=== PATIENT | male | born 1940 | race Caucasian/White ===

== ENCOUNTER → 2016-07-20 | Outpatient (CLI) | payer MEDICARE, BC ==
[~2016-07-20] MED LIST: ALEVE220 M1 PO; ASA325 MG PO; BENADRYL-DPS25 MG PO; COLACE-DPS100 MG PO; COMPAZINE DPS5 MG PO; DULCOLAX-DPS10 MG PR; EFFEXOR XR75 MG PO; FENOFIBRATE48 MG PO; FLEET ENEMA133 ML PR; FLOMAX DPS0.4 MG PO; GLUCOPHAGE-DPS500 MG PO; LOVENOX DP40 MG/0.4 SQ; MAALOX DPS30 ML PO; MILK OF MAGNESI10 ML PO; NORCO 5-325 TA1 EACH PO; NOVOLOG100 UNIT/2 SQ; OXY IR DPS5 MG PO; POLYETHYLENE GL17 GM PO; PROBIOTIC1 EAC1 PO; PROTONIX40 MG PO; RIFADIN300 MG PO; SENOKOT S1 TAB PO; SYNTHROID DP0.025 MG PO; TYLENOL DPS325 MG PO; ULTRAM DPS50 MG PO; VANCOMYCIN1 DOSE IV; VENLAFAXINE H37.5 M1 PO; VITAMIN D2400 UNIT PO; VITAMIN D50000 UNI1 PO; ZEBETA5 MG PO; ZESTORETIC 20/21 TAB PO
== END | disposition home or self-care (01) ==
LOC: PTH.S 09:25
DX: Z01.818 Encounter for other preprocedural examination (principal)

== ENCOUNTER 2016-08-03 06:12 | Inpatient (IN) | payer MEDICARE, BC ==
[~2016-08-03] VITALS: Ht 172.7 cm; Wt 105.7 kg
--- NOTE | ~2016-08-03 | OR ---
ADMIT: 08/03/2016 RM/LOC: 510 [facility] MR#: [id number] [address] [address] JUDY GORDON L [address] [place] [address] Operative/Delivery Room Report SEX: M AGE: 76 : 1940 SURGERY DATE: 08/03/2016 SURGEON: Leoncio Rincon MD AUTO REBUILDER: Shimon Campbell PA-C PREOPERATIVE DIAGNOSIS: Right hip degenerative joint disease. POSTOPERATIVE DIAGNOSIS: Right hip degenerative joint disease. PROCEDURES: 1. Right anterior total hip arthroplasty. 2. Intra-articular Exparel block. ANESTHESIA: Spinal. COMPLICATIONS: None. ESTIMATED BLOOD LOSS: 200 mL. COMPONENTS: 1. A 58 mm Gription pinnacle cup. 2. Two acetabular screws. 3. A hole eliminator. 4. A +4 neutral AltrX liner. 5. A 15 mm standard offset Corail stem. 6. A 0.5 x 36 mm metal head. DESCRIPTION OF PROCEDURE: The patient was taken to the operating room. The correct hip was identified and marked in the preop holding area. The preoperative leg lengths were documented. The patient received a spinal anesthetic. At that point, the patient had traction boots applied. The patient was placed on the [facility] operative table. A perfect fluoroscopic AP pelvis was obtained along with a perfect AP of the operative hip and printed for preoperative templating purposes. At that point, the right hip was prepped and draped in a standard fashion and an anterior approach was performed. An incision was made lateral and inferior to the anterior superior iliac spine extending distally. Dissection was carried through subcutaneous tissue down to the tensor fascia. The fibers of the tensor fascia were identified in oblique fashion. The tensor fascia was then opened up along its muscle fibers. An Allis clamp was placed on the anterior fascial border. The tensor muscle itself was then swept off with blunt dissection and retracted posteriorly. At that point, the rectus was elevated off the anterior hip capsule. The lateral circumflex vessels were identified and cauterized. A Cobra retractor was placed above the superior femoral neck to retract the tensor posteriorly. The rest of the rectus was elevated off the anterior hip capsule and a second retractor was placed around the medial femoral neck. An L-shaped capsulotomy was performed through the hip capsule down to the intertrochanteric line and extended along the intertrochanteric line to the ADMIT: 08/03/2016 RM/LOC: 510 [facility] MR#: [id number] [address] [address] JUDY GORDON [address], [place] [address] Operative/Delivery Room Report SEX: M AGE: 76 : 1940 level of the lesser trochanter. Tag stitches were placed in the medial and lateral border of the hip capsule. We also released the superior hip capsule out of the trochanteric shoulder region. At that point, we placed our Cobra retractors in an intra-articular fashion for improved exposure to complete our capsular releases intra-articularly. A femoral neck cut was then made based on templating using the trochanteric shoulder as a bony landmark. We then externally rotated the hip 20 degrees for improved exposure and removed the femoral head from the acetabulum with no undue difficulty. Once the femoral head was removed, we again completed our capsular release around the inferior femoral neck to the level of lesser trochanter, released the superior capsule off the greater trochanteric shoulder in its entirety. We then placed slight traction on the femur in 20 degrees external rotation and placed a blunt-tip Cobra retractor over the anterior acetabular border. A second blunt Cobra was placed around the posterior acetabular border. All the remaining labrum was excised and an episiotomy performed to the inferior capsule to improve exposure. We cauterized the fovea and removed any remaining tissue in the depth of the acetabulum. We sequentially reamed the acetabulum under direct visualization up to a 57 size reamer. We elected to use a 58 size acetabular component. We put the acetabular component on a curved hogshead mat assembler and placed it within the depths of the acetabulum. At that point we removed all retractors; brought in fluoroscopy; and again obtained a perfect AP of the pelvis followed by a perfect AP of the hip. Under fluoroscopic guidance, we impacted a 58 mm Gription pinnacle cup in approximately 45 degrees of inclination and 20 degrees of anteversion. Two Acetabular screws were now placed with good purchase. Any peripheral osteophytes were circumferentially removed around the acetabular component. A hole eliminator was placed in the acetabular component and a neutral +4 mm AltrX liner was impacted within the acetabular component. A partial intra-articular block with Exparel was performed at this point in time. Once our acetabular preparation was completed, all the acetabular retractors were removed. We then exposed the femur by rotating it into neutral position and taking all traction off the femur. A femoral elevating hook was placed posterior to the trochanteric ridge. The foot was dropped down to 45 degrees and the leg maximally externally rotated no undue tension. We made sure our inferior capsular release was complete and placed a #1 retractor over the tip of the trochanter. Any remaining capsule was released off the tip of the trochanter and the piriformis tendon and a conjoined tendon were also released for exposure. At that point, you could feel the femur give, and we were able to elevate it up and out of the wound. The femur was externally rotated to approximately 120 degrees and the foot dropped to the floor as the leg was adducted. The trochanteric elevating hook was manually pulled in the anterior lateral direction as the elevating bar was raised to support it. At that point, we had excellent femoral exposure. A [place] retractor was placed over the tip of the trochanter and a femoral neck retractor around the medial calcar region to improve exposure. The proximal femur was opened with a box osteotome and a canal finder was used to identify the femoral canal. The proximal femur was sequentially broached up to a 15 mm Corail broach. We did overream the distal canal to be sure we did not have a distal femoral fit. At that point, we left the broach in the canal and calcar ADMIT: 08/03/2016 RM/LOC: 510 [facility] MR#: [id number] 2620 [facility] [address] [place] [id number] JUDY GORDON L [address] [place] [address] Operative/Delivery Room Report SEX: M AGE: 76 : 1940 planed the neck. We then reduced the hip with a standard off-set femoral neck and a 8.5 x 36-mm head. All the retractors and femoral hook were removed. Using manual traction, we were able to reduce the hip into the acetabulum with no undue difficulty. A perfect fluoroscopic AP of the pelvis followed by a perfect AP of the hip was obtained and appropriate leg length and offset were confirmed. We replaced our femoral elevating hook posterior to the trochanter. A bone hook and manual traction were used to dislocate the hip, again externally rotating the femur in its entirety as the foot was dropped to the floor and leg adducted. We removed the trial components, replaced a [place] retractor, and a femoral neck retractor. The broach was removed and the appropriate real components opened. We then impacted a size 15 mm standard offset Corail stem down the femoral canal with excellent press-fit. We impacted a +8.5 x 36 mm metal head on the trunnion. All retractors were removed, using manual traction the hip was reduced, and again was found to be stable. A final fluoroscopic AP pelvis and AP hip was obtained to confirm appropriate leg length, offset, and component positioning. We then irrigated out the wounds thoroughly and repaired the anterior capsular structures with #5 Ti-Cron. Our intra-articular Exparel block was completed including all soft tissues. The tensor fascia was repaired with a running and interrupted 0 Vicryl suture. We closed subQ with 2-0 Vicryl and ran a subcuticular Monocryl stitch. A Prineo hip wound dressing was applied and sterile dressings applied. The patient was taken off the HANA table, transferred to a standard OR bed, and taken to the recovery room in stable condition with no complications. Leoncio Rincon MD/ daniel JOB #: [id number] CC: Leoncio Rincon, Attending Physician Nikos Perales, Family Physician
[2016-08-06] MEDS ORDERED: ZEBETA5 MG PO (14:01)
[2016-08-06] MEDS ORDERED: FENOFIBRATE48 MG PO (14:01)
[2016-08-06] MEDS ORDERED: VITAMIN D2400 UNIT PO (14:01)
[2016-08-06] MEDS ORDERED: ZESTORETIC 20/21 TAB PO (14:01)
[2016-08-06] MEDS ORDERED: ASA325 MG PO (14:02)
[2016-08-06] MEDS ORDERED: ULTRAM DPS50 MG PO (14:02)
[2016-08-06] MEDS ORDERED: GLUCOPHAGE-DPS500 MG PO (14:02)
[2016-08-06] MEDS ORDERED: ALEVE220 M1 PO (14:02)
[2016-08-06] MEDS ORDERED: OXY IR DPS5 MG PO (14:03)
[2016-08-06] MEDS ORDERED: FLOMAX DPS0.4 MG PO (14:03)
--- NOTE | 2016-08-08 08:34 | HP ---
ADMIT: 08/03/2016 RM/LOC: W.02 [facility] MR#: [id number] [facility]0 [place] [address] JUDY GORDON L [address] [place] [address] Pre-OP History and Physical SEX: M AGE: 76 : 1940 DATE OF SERVICE: CHIEF COMPLAINT: Hip pain. HISTORY OF PRESENT ILLNESS: The patient is a 76-year-old male with long- standing history of right hip pain. His right hip pain limits his activity. He has failed conservative care, now being admitted for a right total hip arthroplasty. PAST MEDICAL HISTORY: Includes diabetes, hypertension, lumbar spondylosis, obesity, and chronic kidney disease. PAST SURGICAL HISTORY: Includes lumbar laminectomy. MEDICATIONS: Include: 1. Zestoretic. 2. Fenofibrate. 3. Glucophage. ALLERGIES: MORPHINE. SOCIAL HISTORY: Denies any significant tobacco or alcohol use. He was a previous smoker. REVIEW OF SYSTEMS: Negative. PHYSICAL EXAMINATION: Healthy appearing male walks with antalgic gait using a walker. He has pain with any motion of the right hip. We can internally rotate to 0, externally rotate to 30, flex to 100. He has a large hip flexion contracture. Legs are otherwise neurovascularly intact. DIAGNOSTIC DATA: X-rays AP and lateral show advanced right hip arthritis, no ADMIT: 08/03/2016 RM/LOC: W.02 [facility] MR#: [id number] [facility]0 [address] [address] JUDY GORDON L [address] [place] [address] Pre-OP History and Physical SEX: M AGE: 76 : 1940 joint space remaining. IMPRESSION: 1. Right hip degenerative joint disease. 2. Right hip flexion contracture. 3. Lumbar spondylosis. 4. Diabetes. PLAN: Talked about different options. Failed conservative care. Plan on doing right anterior total hip arthroplasty. He is aware of the risks, benefits, and options and agreed to proceed. He has been seen and cleared from a medical standpoint. Leoncio Rincon MD/ daniel JOB #: [id number] CC: Leoncio Rincon, Attending Physician UNKNOWN, Family Physician
--- NOTE | 2016-08-23 09:27 | DS ---
ADMIT: 08/03/2016 RM/LOC: 510 [facility] MR#: [id number] [facility]#: [id number] [address] [address] JUDY GORDON [address] [place] [address] General Discharge Summary SEX: M AGE: 76 : 1940 ADMISSION DATE: 08/03/2016 DISCHARGE DATE: 08/05/2016 REASON FOR ADMISSION: Elective right total hip arthroplasty after failing conservative care. PREOPERATIVE DIAGNOSIS: Right hip degenerative joint disease. POSTOPERATIVE DIAGNOSIS: Right hip degenerative joint disease. PROCEDURE PERFORMED: Right anterior total hip arthroplasty. SURGEON: Dr. Leoncio Rincon. MOUNTER FLUTES AND PICCOLOS: Shimon Campbell PA-C ANESTHESIA: Spinal. COMPLICATIONS: None. ESTIMATED BLOOD LOSS: 200 mL. ACTIVE MEDICAL PROBLEMS: 1. Depression. 2. Bilateral cataracts. 3. Diabetes. 4. Hypertension. 5. Lumbar spondylosis. 6. Obesity. 7. Chronic kidney disease. HOSPITAL COURSE: The patient was admitted on 08/03/2016 for elective right anterior total hip arthroplasty done successfully without any complications by Dr. Seven Rincon. The patient tolerated the procedure well. Postoperatively, the patient did well with pain control with use of intraoperative Exparel and postoperative oral analgesics. On postoperative day #1, his Hemovac drain was pulled without any complications. He did suffer from some mild acute blood loss anemia. His hemoglobin dropped to 11.1 on 08/05/2016, but he remained hemodynamically stable and did not require blood transfusion. He was having some difficulty with urinary retention, but by postoperative day #2, he was safe and participated well in physical therapy. He was stable and ready for discharge home with plans for Russo catheter removal in 7 days. DISCHARGE MEDICATIONS: 1. Vitamin D2, 25 mg every Wednesday. 2. Lisinopril/hydrochlorothiazide 20/25 mg everyday. 3. Fenofibrate 160 mg everyday. 4. Lisinopril 5 mg a day. ADMIT: 08/03/2016 RM/LOC: 510 [facility] MR#: [id number] 2620 [facility] [address] [place], [place] [address] JUDY GORDON L [address] [place] [address] General Discharge Summary SEX: M AGE: 76 : 1940 5. Metformin 1000 mg twice daily. 6. Aspirin 325 mg everyday for 35 days, then 81 mg. 7. Aleve 440 mg twice daily. 8. Tramadol 50 mg one to two tablets every 6 hours as needed for pain. 9. Oxycodone 5 mg, one to two tablets every 4 hours as needed for breakthrough pain. 10.Flomax 0.4 mg everyday. DISCHARGE INSTRUCTIONS: The patient was discharged home with plans for physical therapy exercises at home as well as Russo catheter removal 7 days post discharge. Follow up in the Orthopedic office for wound check in 2 weeks, and in 6 weeks with x-ray. Follow up with primary care as directed. CHADWICK Hamilton / Leoncio Rincon MD / daniel JOB #: [id number] CC: Leoncio Rincon MD, Attending Physician Nikos Perales MD, Family Physician
[2016-10-29] MEDS ORDERED: PROTONIX40 MG PO (13:32)
[2016-10-29] MEDS ORDERED: POLYETHYLENE GL17 GM PO (13:32)
[2016-10-29] MEDS ORDERED: EFFEXOR XR75 MG PO (13:32)
[2016-10-29] MEDS ORDERED: LOVENOX DP40 MG/0.4 SQ (13:33)
[2016-10-29] MEDS ORDERED: SYNTHROID DP0.025 MG PO (13:33)
[2016-10-29] MEDS ORDERED: SENOKOT S1 TAB PO (13:33)
[2016-10-29] MEDS ORDERED: VANCOMYCIN1 DOSE IV (13:34)
[2016-10-29] MEDS ORDERED: NOVOLOG100 UNIT/2 SQ (13:34)
[2016-10-29] MEDS ORDERED: COLACE-DPS100 MG PO (13:35)
[2016-10-29] MEDS ORDERED: BENADRYL-DPS25 MG PO (13:35)
[2016-10-29] MEDS ORDERED: COMPAZINE DPS5 MG PO (13:35)
[2016-10-29] MEDS ORDERED: NORCO 5-325 TA1 EACH PO (13:36)
[2016-10-29] MEDS ORDERED: MAALOX DPS30 ML PO (13:36)
[2016-10-29] MEDS ORDERED: MILK OF MAGNESI10 ML PO (13:36)
[2016-10-29] MEDS ORDERED: DULCOLAX-DPS10 MG PR (13:37)
[2016-10-29] MEDS ORDERED: TYLENOL DPS325 MG PO (13:37)
[2016-10-29] MEDS ORDERED: FLEET ENEMA133 ML PR (13:38)
[2016-10-29] MEDS ORDERED: PROBIOTIC1 EAC1 PO (13:38)
[2016-10-29] MEDS ORDERED: VENLAFAXINE H37.5 M1 PO (13:40)
[2016-10-29] MEDS ORDERED: VITAMIN D50000 UNI1 PO (13:40)
[2016-10-29] MEDS ORDERED: RIFADIN300 MG PO (13:45)
== END 2016-08-05 17:15 | disposition home or self-care (01) | DRG 470 ==
LOC: 5MS 06:12 → WOR 06:12 → 5MS 11:44
PROVIDERS: ADMIT Orthopaedic Surgery
PROC: 0SR902A Replacement of Right Hip Joint with Metal on Polyethylene Synthetic Substitute, Uncemented, Open Approach (ICD-10-PCS; principal; 2016-08-03)
PROC: 3E0234Z Introduction of Serum, Toxoid and Vaccine into Muscle, Percutaneous Approach (ICD-10-PCS; 2016-08-05)
DX: M16.11 Unilateral primary osteoarthritis, right hip (principal); N17.9 Acute kidney failure, unspecified; E66.9 Obesity, unspecified; Z68.33 Body mass index [BMI] 33.0-33.9, adult; D62 Acute posthemorrhagic anemia; R33.9 Retention of urine, unspecified; E11.9 Type 2 diabetes mellitus without complications; M47.896 Other spondylosis, lumbar region; Z23 Encounter for immunization; F32.9 Major depressive disorder, single episode, unspecified; N18.9 Chronic kidney disease, unspecified; I12.9 Hypertensive chronic kidney disease with stage 1 through stage 4 chronic kidney disease, or unspecified chronic kidney disease; Z87.891 Personal history of nicotine dependence; Z79.82 Long term (current) use of aspirin; Z79.84 Long term (current) use of oral hypoglycemic drugs; Z98.1 Arthrodesis status

== ENCOUNTER 2016-10-19 18:12 | Inpatient (IN) | payer MEDICARE, BC ==
[~2016-10-19] VITALS: Ht 172.7 cm; Wt 103.2 kg
--- NOTE | ~2016-10-19 | HP ---
ADMIT: 10/19/2016 RM/LOC: 529 [facility] MR#: [id number] [facility]#: [id number] [address] [place] [address] [place], [place] [address] JUDY GORDON [address] [place] [address] Pre-OP History and Physical SEX: M AGE: 76 : 1940 DATE OF SERVICE: CHIEF COMPLAINT: Right hip pain. HISTORY OF PRESENT ILLNESS: The patient is a 76-year-old male with a complicated history. He had severe right hip arthritis. He underwent a right anterior total hip arthroplasty by myself on August 03, 2016. Postoperatively, he did well with his hip replacement, but he developed some urinary retention. They end up doing repetitive catheterizations. He eventually ended up with an indwelling Russo catheter for a period of time during this time then he developed recurrent urine tract infections. He was admitted in mid September. He was treated with multitude of different antibiotics. They felt he has finally gotten his urinary tract infection resolved. On October 06, he developed severe left hip pain. The pain is mostly in the gluteal area and a little bit on the lateral hip. I evaluated him in [place] 10 days ago. At that point, he was having mostly pelvic pain on the left side. No pain on the right. His right hip wound looked excellent. We did an MRI of his pelvis, and MRI of his pelvis showed a left-sided sacral insufficiency fracture accounting for his left-sided hip pain. It did show a small fluid collection, which looked like a postop resolving hematoma on the right hip. He was having no erythema or warmth there. He started having some fevers in early October. They ended up taking blood cultures, which ended up growing out some gram-positive cocci from blood with a presumed urosepsis. He was treated with again multitude of antibiotics with resolution of the bulk of his symptoms. They were actually getting ready to send him home and then he developed increased white count and increasing sedimentation rate. He then developed a fluctuant area at the inferior aspect of the right hip wound. Dr. Perales aspirated this today and got out about 90 mL of fairly purulent material. At this point, he was transferred to [place] for definitive care. Presently, he is not having much pain in the groin area. Most of pain over the anterior aspect of the incision. PAST MEDICAL HISTORY: Past medical problems include hypertension and diabetes. MEDICATIONS: Presently include recently started on vancomycin, but normally is on: 1. Fenofibrate. 2. Flomax. 3. Lisinopril/hydrochlorothiazide. 4. Metformin. ALLERGIES: NONE. SOCIAL HISTORY: Normally lives at home. REVIEW OF SYSTEMS: Negative. PHYSICAL EXAMINATION: GENERAL: He is actually healthy appearing male. He is ADMIT: 10/19/2016 RM/LOC: 529 [facility] MR#: [id number] [address] [address] JUDY GORDON [address], [place] [address] Pre-OP History and Physical SEX: M AGE: 76 : 1940 in no acute distress. Amazingly, the right hip wound actually is clean. No erythema. Really no warmth. He does have a fluctuant area about 3 x 3 cm at the inferior aspect of the wound, but again there is no opening of the wound, and there is no erythema over this area. He has minimal pain with hip range of motion. Leg is otherwise neurovascularly intact. He does have some left-sided sacral pain and left-sided lateral hip pain. No pain in the groin on the left. DIAGNOSTIC DATA: X-rays of the right hip are pending. LABORATORY DATA: Recent lab test showed increased sedimentation rate of 82. He has had intermittent elevated white count. His latest white count from October 19, today, was at 10.9. They did again have blood cultures from October 08, which grow gram-positive cocci, which actually turned into positive Staph aureus. This was not methicillin resistant. IMPRESSION: 1. Right superficial versus deep postop wound infection status post total hip arthroplasty. 2. Left-sided sacral insufficiency fracture. 3. Diabetes. PLAN: At this point, we are going to get x-rays of the right hip. We will await lab tests here including sedimentation rate, CBC, and CRP. We will plan on taking the patient to surgery once cleared by primary care. Upon exploring the wound if it is a superficial infection, we will do superficial irrigation and debridement. We will take care to be sure this is not tracking deeply towards the prosthesis. If it is towards prosthesis, we will have to do a formal dislocation, poly exchange, femoral head exchange. If any of the components were loose, we plan on removing these and place a . If the components are well fixed, we will attempt a salvage procedure with component retention with exchange of all modular components and placement of antibiotic beads. We will obtain intraoperative cultures. He is aware of the risks, benefits, and options and agreed to proceed. from a medical standpoint. Leoncio Rincon MD/ daniel JOB #: [id number] CC: Leoncio Rincon, Attending Physician Leoncio Rincon, Family Physician Nikos Perales MD
[~2016-10-19 18:12] MED LIST changes: -BENADRYL-DPS25 MG PO; -COLACE-DPS100 MG PO; -COMPAZINE DPS5 MG PO; -DULCOLAX-DPS10 MG PR; -EFFEXOR XR75 MG PO; -FLEET ENEMA133 ML PR; -LOVENOX DP40 MG/0.4 SQ; -MAALOX DPS30 ML PO; -MILK OF MAGNESI10 ML PO; -NORCO 5-325 TA1 EACH PO; -NOVOLOG100 UNIT/2 SQ; -POLYETHYLENE GL17 GM PO; -PROBIOTIC1 EAC1 PO; -PROTONIX40 MG PO; -RIFADIN300 MG PO; -SENOKOT S1 TAB PO; -SYNTHROID DP0.025 MG PO; -TYLENOL DPS325 MG PO; -VANCOMYCIN1 DOSE IV; -VENLAFAXINE H37.5 M1 PO; -VITAMIN D50000 UNI1 PO
--- NOTE | 2016-10-21 16:20 | OR ---
ADMIT: 10/19/2016 RM/LOC: 529 [facility] MR#: [id number] [facility]#: [id number] [address] [address] JUDY GORDON L [address] [place] [address] Operative/Delivery Room Report SEX: M AGE: 76 : 1940 SURGERY DATE: 10/20/2016 SURGEON: Leoncio Rincon MD PREOPERATIVE DIAGNOSIS: Right superficial versus deep infection status post right anterior total hip arthroplasty. POSTOPERATIVE DIAGNOSIS: Right acute deep infected total hip arthroplasty. PROCEDURE: 1. Right hip irrigation and debridement. 2. Femoral head and polyethylene exchange. 3. Placement of antibiotic beads. CAFE OPERATOR: Shimon Campbell PA-C and CHADWICK Iverson. COMPLICATIONS: None. ESTIMATED BLOOD LOSS: 400 mL. PROCEDURE IN DETAIL: The patient was taken to the operating room, received a general anesthetic. He was placed on the [place] table. The right hip was then prepped and draped in a standard fashion. The incision was reopened. Once we were through the subcutaneous tissue, we encountered a large abscess in the distal aspect of the wound. We cultured this fluid, sent it to the lab. At that point, we enlarged our incision. Once we were through the deep fascia, there was an obvious deep infection tracking all the way down to the prosthesis. At that point, we did a standard anterior approach to the hip through some of the scar tissue. There was some heterotopic ossification in the abductors and over the anterior femur. We released and did an anterior capsulectomy removing all devitalized tissue. We had to release a little bit of the rectus off the anterior superior iliac spine for exposure. We did a little bit more of the inferior and anterior capsulectomy also to loosen the hip cause it was quite stiff. At that point, we were able to get the hip dislocated with no undue difficulty. We then removed the femoral head. The stem was well fixed. No lysis at all around the stem. At that point, we used an osteotome and cleaned off the margins of the acetabular component. The acetabular component was well fixed. We then removed the polyethylene insert. ADMIT: 10/19/2016 RM/LOC: 529 [facility] MR#: [id number] [address] [place] [id number] [place], [place] [address] JUDY GORDON L [address] [place] [address] Operative/Delivery Room Report SEX: M AGE: 76 : 1940 There was some purulent material behind the cup. We did pulse lavaged of the cup thoroughly. I cleaned it thoroughly. Cleared off all of the remaining screw heads and screw holes. Pulse lavaged out with a total of 3 L of bacitracin irrigation throughout the entire wounds. At that point, we had a good thorough soft tissue debridement. We then replaced the 58 mm +4 neutral AltrX liner in the acetabulum. We then placed an 8.5 x 36 mm metal head on the femur and reduced the hip. It was actually quite stable. We then irrigated out the wound a final time. We then placed a vancomycin impregnated antibiotic beads throughout the entire wound and soft tissues. We then closed the deep tissue with 0 Vicryl, subcutaneous with 2-0 Vicryl, and brock with the skin. We applied sterile dressings. He was taken to recovery room in stable condition with no complications. Leoncio Rincon MD/ daniel JOB #: [id number] CC: Leoncio Rincon, Attending Physician Leoncio Rincon, Family Physician
--- NOTE | 2016-10-26 09:52 | CO ---
ADMIT: 10/19/2016 RM/LOC: [facility] MR#: [id number] [address] [address] ANIL BREWSTER [address] [place] [address] Consultation SEX: M AGE: 76 : 1940 DATE OF CONSULTATION: 10/22/2016 ATTENDING PHYSICIAN: Leoncio Rincon CONSULTING PHYSICIAN: Miles Cowan MD REASON FOR CONSULTATION: Right prosthetic hip infection. HISTORY OF PRESENT ILLNESS: Dear Dr. Kilgore: Thank you for requesting an inpatient consult on Anil Brewster. He is a very pleasant 76-year-old gentleman from [place], [place] who has some memory loss and history is therefore incomplete from him, mostly obtained from the charts. The patient underwent an elective right total hip arthroplasty after failing conservative care for right hip pain and arthritis. This was done on August 03, 2016, and he was discharged on August 05. While he was at home, he fell on his couch and suffered a fracture of the left sacral maybe left hip. He was told it was a hairline fracture and it will heal by itself. He does not remember why he was admitted on October 08 to [facility] [place], but apparently at that time, he was feeling sick, and Dr. Perales did some blood cultures that came back positive for MSSA. While he was there, he had swelling of the right hip. He was initially evaluated by the orthopedic surgeon and was found to have a small fluid collection, but nothing that has looked like an abscess at that time. He was having no erythema or warmth. In any case, they treated him in the hospital with IV Rocephin and then he was switched to oral levofloxacin. However, the final culture on the blood cultures came back, levofloxacin resistant. He was about to be sent home when he developed increased white count and sedimentation rate, and had more swelling with evidence of abscess of the right hip. He was transferred to [place], and he was admitted here on October 19. Dr. Rincon took him to OR and performed a right hip irrigation and debridement, femoral head and polyethylene exchange, and placement of antibiotic beads. Blood cultures here in [place] are negative so far, and the surgical cultures are negative. Dr. Kilgore started him on IV nafcillin. The patient is tolerating this well without any fevers, chills, nausea, vomiting, or skin rash. REVIEW OF SYSTEMS: As in history of present illness. Otherwise, really negative. He denies any urinary symptoms at this time, but he did have urinary retention and needed to have a Russo in place. Currently growing some gram-positive cocci, small amount in the urine. He did not have diarrhea. Did not have any skin rash. No fevers or chills. Currently, he feels better and his pain has improved. All other systems negative, eleven systems reviewed. PAST MEDICAL HISTORY: 1. Diabetes mellitus, type 2 with good control. 2. Arthritis status post right total hip arthroplasty on August 03. 3. Left sacral fracture. 4. History of back surgery. ADMIT: 10/19/2016 RM/LOC: [facility] MR#: [id number] [address] [place] [id number] ANIL BREWSTER [address], [place] [address] Consultation SEX: M AGE: 76 : 1940 5. Hypertension. 6. Lhnzh-eq-vrczkon kidney injury. 7. Urinary retention. ALLERGIES: NO KNOWN DRUG ALLERGIES. SOCIAL HISTORY: He is retired and lives in [place]. Never smoked. . Alcohol, very occasionally. FAMILY HISTORY: Positive for cancer, hypertension, and diabetes. He also is going into quite a lot as his has cancer surgery this month or so. PHYSICAL EXAMINATION: GENERAL: Appears in no acute distress. Appears stated age. Appears somewhat forgetful, but answers all my questions appropriately. VITAL SIGNS: Temperature 97.1, heart rate 79, respirations 20, blood pressure 109/53, saturation 95% in room air. HEAD: Normocephalic, atraumatic. Eyes, pupils are equal and reacting to light. Exam of the mouth shows no lesions. NECK: Supple. No JVD. No lymphadenopathy. CHEST: Normal movements. Clear to auscultation. HEART: Regular rhythm and rate. No murmurs or gallops. ABDOMEN: Soft, nontender. No hepatosplenomegaly. EXTREMITIES: No peripheral edema. NEUROLOGIC: Alert and oriented x3 without deficits, but he does not remember all the events from earlier this month. He has again no sensory or motor deficit. SKIN: Again, no rashes. No nodules. MUSCULOSKELETAL: He does have quite a bit of tenderness in the left hip and left lower back area with some mild swelling, but no erythema. Right hip is status post recent incision. There is absolutely no drainage. No significant cellulitis. No erythema. Only minimal tenderness at the level of the incision. LABORATORY DATA: Blood cultures from [place] on October 08 in both sets grew methicillin-sensitive Staph aureus, which was sensitive to all usual oral antibiotics except levofloxacin and clindamycin. It was sensitive to rifampin, dicloxacillin, oxacillin, tetracyclines, and Bactrim as well as vancomycin. I do not have the results of the aspiration of the hip from his admission. Blood cultures here at [facility] were negative x2 sets on October 19. Right hip cultures from October 20 were negative. Right hip cultures again, were negative, but urine cultures from October 19 were positive for a very small amount of gram positive organism. Glucose is 188, creatinine 2.1. It was 0.9 on October 20, and now is stabilized around 2.1. However, he did have an elevated creatinine in July also, which went down all the way to 0.9. CBC shows a white count of 13.2, which is higher than on admission. Hemoglobin was 8.1, platelets 371. I reviewed the kidney data from before, and I do not find a kidney ultrasound. X-ray of the hip shows total right hip arthroplasty with no complications. ADMIT: 10/19/2016 RM/LOC: [facility] MR#: [id number] 26[address] [facility] [address] [place] [phone] ANIL BREWSTER [address] [place] [address] Consultation SEX: M AGE: 76 : 1940 IMPRESSION: 1. 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 The patient has negative intraoperative cultures so far, but has been pre-treated with antibiotics that included Rocephin, which has activity against MSSA. The patient is status post polyethylene and femoral component exchange with placement of vancomycin antibiotic beads. 2. Status post I and D of the right hip with placement of beads, currently doing well. 3. Recent methicillin-sensitive Staphylococcus aureus sepsis and bloodstream infection. The patient was partially treated and current blood cultures are negative. In this setting, suspicion of endocarditis is clinically low, but not impossible to rule out. I feel that performing a transesophageal echocardiogram will not change the ultimate treatment in this patient, who does not have evidence of worsening cardiac function. This should be monitored and echocardiogram may still be needed if he develops signs of congestive heart failure. Again, his current blood cultures are negative, which somewhat speak against endocarditis. From his previous antibiotics, Rocephin would have covered the MSSA, but there are several cases of failure of treatment of blood stream infection. However, he is currently on antibiotics with very good activity for MSSA. 4. Diabetes mellitus. 5. Chronic kidney disease with acute kidney injury. It is unclear what his baseline is, but he did have a high creatinine on admission in July also, which then was significantly improved by the time of discharge. 6. Memory loss. PLAN: 1. Nafcillin is first line antibiotic treatment for severe methicillin- sensitive Staph aureus infections. At this time, I would recommend placement of a PICC line if possible, but we will have to obtain clearance from Internal Medicine or Nephrology given the fact that he has apparently severe kidney disease. PICC line may be a problem if future fistula is planned. 2. Per guidelines for prosthetic joint infections for his right hip infection, he will need a total of at least 3 months of antibiotics. This should be in the form of 2 to 6 weeks of IV antibiotic first line such as nafcillin or cefazolin in combination with oral rifampin to break any potential biofilm. This should be followed by up to 3 months of oral antibiotic therapy including rifampin and a second drug. 3. For outpatient use, I will ask the Social Service to look into the possibility of placing him in [place] with cefazolin, which will probably need to be given every 12 hours considering his kidney function. This will probably be simpler than nafcillin for discharge and recent studies have shown that cefazolin is at least as effective and somewhat safer than the previously considered first-line drug such as nafcillin and oxacillin. ADMIT: 10/19/2016 RM/LOC: [facility] MR#: [id number] [address] [place] [id number] ANIL BREWSTER [address], [place] [address] Consultation SEX: M AGE: 76 : 1940 4. I will add rifampin 300 mg p.o. b.i.d. and recheck CBC and CMP in the a.m. 5. This patient is very high risk for adverse reactions from antibiotics including worsening of kidney function, pancytopenia, and various other drug reactions including liver reactions. He needs to be closely monitored. Fortunately, he is doing very well at this time. 6. When he gets discharged, I will be happy to continue to follow him in my ID clinic in [place]. Thank you very much for this consult. We will continue to follow with you. Miles Cowan MD/ daniel JOB #: [id number] CC: Leoncio Rincon, Attending Physician Leoncio Rincon, Family Physician MD Mayela Saavedra MD
[2016-10-29] MEDS ORDERED: POLYETHYLENE GL17 GM PO (13:32)
[2016-10-29] MEDS ORDERED: PROTONIX40 MG PO (13:32)
[2016-10-29] MEDS ORDERED: EFFEXOR XR75 MG PO (13:32)
[2016-10-29] MEDS ORDERED: LOVENOX DP40 MG/0.4 SQ (13:33)
[2016-10-29] MEDS ORDERED: SYNTHROID DP0.025 MG PO (13:33)
[2016-10-29] MEDS ORDERED: SENOKOT S1 TAB PO (13:33)
[2016-10-29] MEDS ORDERED: NOVOLOG100 UNIT/2 SQ (13:34)
[2016-10-29] MEDS ORDERED: VANCOMYCIN1 DOSE IV (13:34)
[2016-10-29] MEDS ORDERED: COMPAZINE DPS5 MG PO (13:35)
[2016-10-29] MEDS ORDERED: COLACE-DPS100 MG PO (13:35)
[2016-10-29] MEDS ORDERED: BENADRYL-DPS25 MG PO (13:35)
[2016-10-29] MEDS ORDERED: MAALOX DPS30 ML PO (13:36)
[2016-10-29] MEDS ORDERED: NORCO 5-325 TA1 EACH PO (13:36)
[2016-10-29] MEDS ORDERED: MILK OF MAGNESI10 ML PO (13:36)
[2016-10-29] MEDS ORDERED: DULCOLAX-DPS10 MG PR (13:37)
[2016-10-29] MEDS ORDERED: TYLENOL DPS325 MG PO (13:37)
[2016-10-29] MEDS ORDERED: PROBIOTIC1 EAC1 PO (13:38)
[2016-10-29] MEDS ORDERED: FLEET ENEMA133 ML PR (13:38)
[2016-10-29] MEDS ORDERED: VENLAFAXINE H37.5 M1 PO (13:40)
[2016-10-29] MEDS ORDERED: VITAMIN D50000 UNI1 PO (13:40)
[2016-10-29] MEDS ORDERED: RIFADIN300 MG PO (13:45)
--- NOTE | 2016-11-02 07:53 | CO ---
ADMIT: 10/19/2016 RM/LOC: 529 [facility] MR#: [id number] [id number] [place], [place] [address] JUDY BREWSTER [address] [place] [address] Consultation SEX: M AGE: 76 : 1940 DATE OF CONSULTATION: 10/19/2016 ATTENDING PHYSICIAN: Leoncio Rincon CONSULTING PHYSICIAN: Mayela Kilgore MD CHIEF COMPLAINT: Right hip superficial swelling. HISTORY OF PRESENT ILLNESS: Mr. Brewster is a very pleasant, 76-year-old man. He has a past medical history significant for diabetes mellitus, hypertension, and recent right hip total arthroplasty, who was transferred down from [place] for purulent fluid collection in his right anterior hip. The patient underwent right total hip arthroplasty on August 03. His postop course was complicated by urinary retention, and he did leave here with a Russo in place. Apparently a couple weeks later, he stood up from sitting down on the couch and was unable to bear weight on his left leg, had an MRI which showed a left sacral insufficiency fracture. He was admitted actually on May 10 back to the [facility]. Apparently, some blood cultures were done at that time, did come back as MSSA. It was noted that he had been on maybe some Rocephin and then some Levaquin and just today was being switched over to vancomycin apparently. He had noted to have a small fluid collection on his right anterior hip. This had been noted back on the MRI. He was actually seen by Dr. Bauer, who felt that it looked pretty unremarkable without any redness around the wound. Today apparently, this was getting larger and he was having more right hip pain. It was drained today, was noted to be purulent. Therefore, he was transferred down here for further evaluation and treatment. PAST MEDICAL HISTORY: Significant for: 1. Status post right total hip arthroplasty, August 03. 2. History of back surgery. 3. History of left carpal tunnel surgery. 4. Diabetes mellitus, type 2. 5. Hypertension. 6. Urinary retention. 7. History of arthritis. ALLERGIES: NO KNOWN MEDICAL ALLERGIES. MEDICATIONS: 1. Fenofibrate 144 p.o. daily. 2. Lactobacillus 25 mg p.o. daily. 3. Metformin 500 mg p.o. daily. 4. Protonix 40 mg p.o. daily. 5. Tamsulosin 0.4 p.o. daily. 6. Venlafaxine 75 mg p.o. daily and then other p.r.n. SOCIAL HISTORY: He is a never smoker. He is . His is unfortunately undergoing a breast cancer surgery tomorrow. Otherwise, uses ADMIT: 10/19/2016 RM/LOC: 529 [facility] MR#: [id number] [address] [address] JUDY BREWSTER [address] [place] [address] Consultation SEX: M AGE: 76 : 1940 rare alcohol. FAMILY HISTORY: Positive for cancer, hypertension, and diabetes. REVIEW OF SYSTEMS: He does report that he has lost about 60 pounds over the last year, but otherwise really has felt pretty well and was very positive about getting out of the hospital. Otherwise, his review of systems was obtained and was otherwise essentially negative. PHYSICAL EXAMINATION: GENERAL: He is alert and oriented, in no apparent distress. HEENT: Pupils are equal, round, and reactive. Oropharynx, dry mucous membranes. NECK: Supple. HEART: Normal rate with a regular rhythm. LUNGS: Clear to auscultation. ABDOMEN: Soft. Bowel sounds are present. Nontender and nondistended. EXTREMITIES: Have no evidence of edema. He does have a palpable fluid pocket in the inferior border of his right incision. Otherwise, has trace to 1+ lower extremity edema. ASSESSMENT AND PLAN: 1. Right hip prosthesis with superficial swelling with the culture has been sent. The plan is to go to the OR tomorrow. We will go ahead and put him on nafcillin with his known bacteremia with methicillin-resistant Staphylococcus aureus. 2. Recent bacteremia with methicillin-resistant Staphylococcus aureus 12 days ago. 3. Diabetes mellitus. 4. Left sacral insufficiency fracture. 5. Weight loss. 6. Urinary retention. 7. History of recurrent urinary tract infections. At this time, we will go ahead and evaluate his urine. We will go check a PSA, otherwise we will follow along. Thank you for this consult. I spent 35 minutes in evaluation and treatment of the patient. Mayela Kilgore MD/ daniel JOB #: [id number] CC: Leoncio Rincon, Attending Physician Leoncio Rincon, Family Physician
--- NOTE | 2016-11-23 07:05 | DS ---
ADMIT: 10/19/2016 RM/LOC: 529 [facility] MR#: [id number] [facility]#: [id number] [address] [place], [place] [address] ANIL GORDON [address] [place] [address] General Discharge Summary SEX: M AGE: 76 : 1940 ADMISSION DATE: 10/19/2016 DISCHARGE DATE: 10/28/2016 REASON FOR ADMISSION: Right hip pain status post total hip arthroplasty with presumed infection. ADMISSION DIAGNOSES: Status post right total hip arthroplasty with possible infection, type 2 diabetes, hypertension, history of urinary retention, history of osteoarthritis, recent bacteremia with methicillin-resistant Staphylococcus aureus 12 days ago, left sacral insufficiency fracture, and weight loss. SERVICES WHILE IN THE HOSPITAL: 1. Orthopedics, Leoncio Rincon MD. 2. Internal Medicine, Mayela Kilgore MD. 3. Infectious Disease, Miles Cowan MD. PROCEDURES PERFORMED: Right hip irrigation and debridement with femoral head and polyethylene exchange with placement of antibiotic beads. PREOPERATIVE DIAGNOSIS: Right superficial versus deep infection status post a right anterior total hip arthroplasty. POSTOPERATIVE DIAGNOSIS: Right acute deep infected total hip arthroplasty. COMPLICATIONS: None. BLOOD LOSS: 400 mL. ASSISTANTS: 1. Shimon Campbell PA-C. 2. CHADWICK Hamilton. SURGEON: Leoncio Rincon MD HOSPITAL COURSE: Anil was admitted on 10/19/2016 due to right hip swelling and presumed infection. He was admitted and consulted on by Dr. Mayela Kilgore for medical management. At admission, he had recently been on antibiotics for urinary retention. Did do UA and PSA. Originally, the UA was negative. On 10/20/2016, he underwent surgical I and D of the right hip. Grossly purulent material was expressed. He subsequently then had polyethylene and femoral head exchange with placement of antibiotic beads into the anterior total hip arthroplasty. He did tolerate that procedure well. He had some pain postoperatively, which was managed with oral analgesics. He was started on nafcillin 2 g IV q.4 hours. Postoperatively, he had strict total hip arthroplasty precautions of nonweightbearing and transfers. He did have some pain secondary to his hip. He also had a previous insufficiency fracture of the left sacrum. Intraoperative cultures grew Staph aureus with reasonable sensitivities to multiple medications, but also multiple resistances. ADMIT: 10/19/2016 RM/LOC: 529 [facility] MR#: [id number] [address] [address] ANIL GORDON [address], [place] [address] General Discharge Summary SEX: M AGE: 76 : 1940 Chapo was consulted for Infectious Disease with recommendations of placement of a PICC line and IV antibiotics. Methicillin-sensitive staph was therefore treated with nafcillin with plans for antibiotic treatment minimum of 3 months total with 2 to 6 weeks of those being IV. On 10/23, he did develop a critical low of hemoglobin of 6.9 and transfused 1 unit. On 10/25/2016, he was switched to vancomycin 1.5 g IV q.24 hours, titrated per pharmacy. Nafcillin was stopped. He did have some acute on chronic kidney injury and developed some hypokalemia. He pushed fluid. Treated his hypokalemia with 20 mEq of potassium. He was started on p.o. rifampin 300 mg b.i.d. as he was continued with his vancomycin. By 10/27, his hypokalemia had been resolved. His acute kidney injury is improving. His pain was improving. He is actively being treated for his infection in a well established plan. He was laid forth per the expertise of Dr. Cowan. By 10/28/2016, he was stable and ready for discharge with plans to go to [place] for his postoperative rehabilitation. DISCHARGE MEDICATIONS: 1. Effexor 75 mg daily. 2. Flomax 0.4 mg daily. 3. MiraLAX p.r.n. 4. Protonix 40 mg daily. 5. Rifampin 300 mg p.o. b.i.d. 6. Senokot b.i.d. p.r.n. 7. Synthroid 0.025 mg daily. 8. Fenofibrate 145 mg daily. 9. Lovenox 40 mg subcu daily. 10.NovoLog sliding scale as directed. 11.Vancomycin IV to maintain therapeutic level per pharmacy titration. 12.Benadryl 25 mg q.6 p.r.n. 13.Colace 100 mg b.i.d. p.r.n. 14.Compazine 5 mg q.6 p.r.n. ADMIT: 10/19/2016 RM/LOC: [facility] MR#: [id number] [address] [place] [phone] ANIL GORDON [address], [place] [address] General Discharge Summary SEX: M AGE: 76 : 1940 15.Hydrocodone 5/325, 1 to 2 q.6 p.r.n. 16.Maalox p.r.n. 17.Milk of mag p.r.n. 18.Dulcolax p.r.n. DISCHARGE INSTRUCTIONS: Anil will go to [facility] for rehabilitation. He will have IV antibiotics for [address] Cowan and continue with the rifampin and possibly switch to oral while on long-term chronic suppression. He will have followup with Dr. Cowan in the GI Infectious Disease clinical and followup with Dr. Rincon in [place] outreach in 2 weeks postop for wound check. Follow up with primary care in 1 week for serial CBCs and CMP monitoring. Shimon Campbell PA-C / Leoncio Rincon MD / daniel JOB #: [id number] CC: Leoncio Rincon MD, Attending Physician Leoncio Rincon MD, Family Physician
== END 2016-10-28 08:38 | DRG 467 ==
LOC: 5MS 18:12
PROVIDERS: ADMIT Orthopaedic Surgery
PROC: 3E0U029 Introduction of Other Anti-infective into Joints, Open Approach (ICD-10-PCS; principal; 2016-10-20)
PROC: 0SUA09Z Supplement Right Hip Joint, Acetabular Surface with Liner, Open Approach (ICD-10-PCS; principal; 2016-10-20)
PROC: 0SR902A Replacement of Right Hip Joint with Metal on Polyethylene Synthetic Substitute, Uncemented, Open Approach (ICD-10-PCS; principal; 2016-10-20)
PROC: 0SPR0JZ Removal of Synthetic Substitute from Right Hip Joint, Femoral Surface, Open Approach (ICD-10-PCS; principal; 2016-10-20)
PROC: 0SP909Z Removal of Liner from Right Hip Joint, Open Approach (ICD-10-PCS; principal; 2016-10-20)
PROC: 02HV33Z Insertion of Infusion Device into Superior Vena Cava, Percutaneous Approach (ICD-10-PCS; 2016-10-23)
PROC: 30233N1 Transfusion of Nonautologous Red Blood Cells into Peripheral Vein, Percutaneous Approach (ICD-10-PCS; 2016-10-23)
DX: T84.51XA Infection and inflammatory reaction due to internal right hip prosthesis, initial encounter (principal); M84.48XA Pathological fracture, other site, initial encounter for fracture; N17.9 Acute kidney failure, unspecified; L89.152 Pressure ulcer of sacral region, stage 2; E11.22 Type 2 diabetes mellitus with diabetic chronic kidney disease; B95.61 Methicillin susceptible Staphylococcus aureus infection as the cause of diseases classified elsewhere; D62 Acute posthemorrhagic anemia; B95.62 Methicillin resistant Staphylococcus aureus infection as the cause of diseases classified elsewhere; R33.9 Retention of urine, unspecified; E66.9 Obesity, unspecified; Z68.31 Body mass index [BMI] 31.0-31.9, adult; K21.9 Gastro-esophageal reflux disease without esophagitis; E87.6 Hypokalemia; M19.90 Unspecified osteoarthritis, unspecified site; I12.9 Hypertensive chronic kidney disease with stage 1 through stage 4 chronic kidney disease, or unspecified chronic kidney disease; N18.9 Chronic kidney disease, unspecified; Z86.14 Personal history of Methicillin resistant Staphylococcus aureus infection; Z79.84 Long term (current) use of oral hypoglycemic drugs; Z66 Do not resuscitate